=== PATIENT | male | born 1990 | race Caucasian/White ===

== ENCOUNTER 2017-04-10 17:24 | Emergency (ER) | payer OTHER ==
[~2017-04-10] VITALS: Wt 82.8 kg
[2017-04-10] MEDS ORDERED: LIDOCAINE 1% (MDV) 20 ML INJ SC ONE (20:00)
--- NOTE | 2017-04-10 20:02 | ERD ---
ER Documentation Chief Complaint Chief Complaint abscess to q [facility] This is an otherwise healthy 26-year-old male who presents the emergency department for complaints of a painful skin lesion on his abdomen 2 days. Patient states he initially noticed a red dot which gradually began to swell and is now painful to touch. He denies any pain at rest. He denies fever, chills, nausea, vomiting, abdominal pain, diarrhea, weakness or tingling. ROS All systems reviewed and are negative except as per history of present illness. Medications Home Meds Active Scripts Cephalexin* (Keflex*) 500 Mg Capsule, 500 MG PO BID for 7 Days, CAP Prov:DEIDRE RODRIGUES PA-C 04/10/17 Sulfamethoxazole/Trimethoprim* (Bactrim Ds* Tablet) 1 Each Tablet, 1 TAB PO BID , #14 TAB Prov:DEIDRE RODRIGUES PA-C 04/10/17 Physical Exam Vitals Vital Signs Date Time Temp Pulse Resp B/P Pulse Ox O2 Delivery O2 Flow Rate FiO2 04/10/17 17:35 99.1 53 20 130/65 97 Physical Exam Const: Well-developed, well-nourished, in no acute distress Head: Atraumatic Eyes: Normal Conjunctiva ENT: Normal External Ears, Nose and Mouth. Neck: Full range of motion..~ No meningismus. Resp: Clear to auscultation bilaterally Cardio: Regular rate and rhythm, no murmurs Abd: Soft, non tender, non distended. Normal bowel sounds Skin: 3 cm area of induration with a 1 cm area central swelling with fluctuance located at the left lower abdomen. Tenderness to palpation. No active discharge or bleeding. no Surrounding lesions. Back: No midline or flank tenderness Ext: No cyanosis, or edema Neur: Awake and alert Psych: Normal Mood and Affect Results 24 hrs Current Medications Medications (Trade) Dose Ordered Sig/Shraddha Route PRN Reason Start Time Stop Time Status Last Admin Dose Admin Lidocaine (Xylocaine 1% (Mdv) 20 ml) 20 ml ONCE ONCE SC 04/10/17 20:00 04/10/17 20:01 DC Procedures/MDM This is a 26-year-old otherwise healthy male who presents the emergency department for complaints of a skin lesion 3 days. Patient well-appearing and nontoxic upon arrival. Vital signs reviewed and within normal limits. Physical exam with evidence of a 1 cm abscess with mild surrounding erythema. Abscess Incision and Drainage with irrigation by me: Location: Lower abdomen Anesthesia: Local 1% Lidocaine Technique: Irrigated. Disrupted loculations w/ instrumentation Packing: None Complications: Neurovascularly intact post procedure 48 hour wound check. Scar minimization instructions given. Patient's skin symptoms have stabilized while they have been evaluated in the department and are appropriate for outpatient care and work up. Exam and w/u not consistent w/ sepsis, deep space infection, or foreign body. I recommended antibiotics as well as Motrin and daily dressing changes. Patient stable for discharge. Return precautions discussed. Based on patient's history of present illness and physical examination the decision was made to discharge. The patient was re-evaluated after ED treatment and stabilizing measures, and symptoms have improved. There is no evidence of life threatening injuries or illnesses at this time. On re-examination, patient resting in no distress, stable vital signs, reports feeling better and safe for discharge with outpatient follow up with PMD in 1-2 days. Patient given return precautions. Departure Diagnosis: Primary Impression: Abscess DEIDRE RODRIGUES PA-C Apr 10, 2017 20:02
[2017-04-10] MEDS ORDERED: SULF1TAB31 PO (20:19)
[2017-04-10] MEDS ORDERED: CEPH-443 PO (20:19)
== END 2017-04-10 20:36 | disposition home or self-care (01) ==
LOC: FTE 17:24
DX: L02.211 Cutaneous abscess of abdominal wall (principal)
CPT/HCPCS: 10060; Z7502; Z7610

== ENCOUNTER 2017-10-25 05:03 | Inpatient (IN) | END 2017-10-26 15:10 | disposition home or self-care (01) | DRG 853 ==